=== PATIENT | male | born 1980 | race Caucasian/White ===

== ENCOUNTER 2017-05-21 12:38 | Outpatient (CLI) | payer BC | END 2017-05-21 12:39 | disposition critical access hospital (66) | LOC: EMS 12:38 | PROVIDERS: ATTEND Surgery | DX: M54.5 Low back pain (principal) | CPT/HCPCS: A0425; A0427 ==

== ENCOUNTER 2017-05-21 13:00 | Emergency (ER) | payer BC ==
[2017-05-21] MEDS ORDERED: MORPHINE 10 MG/ML VIAL IVP STA (13:25)
[2017-05-21] MEDS ORDERED: diazePAM INJ 5 MG/ML SYRINGE IVP STA (13:25)
[2017-05-21] MEDS ORDERED: KETOROLAC 60 MG/2 ML VIAL IVP STA (13:25)
--- NOTE | 2017-05-21 13:27 | ED Physician Documentation ---
PD HPI BACK PAIN - Stated complaint Stated Complaint: BACK PX - Chief complaint Chief Complaint: Back Pain - History obtained from History obtained from: Patient, EMS - History of Present Illness Timing - onset: Other (He did a little more lifting yesterday than normal. Today he woke up and has been having intermittent severe back spasms in the low back radiating upward. A little more on the left than the right but certainly bilateral. There is no radiation into the legs, saddle area, or groin. There is no weakness, numbness, or tingling of the legs or saddle area. No incontinence. He has had multiple episodes like this before, however not this severe. He went to a chiropractor 6 months ago which was helpful but had to come here from the chiropractor today because of the severity of the pain.) Review of Systems Ten Systems: 10 systems reviewed and negative Constitutional: reports: Reviewed and negative Cardiac: reports: Reviewed and negative Respiratory: reports: Reviewed and negative PD PAST MEDICAL HISTORY - Past Medical History Past Medical History: No - Past Surgical History Past Surgical History: Yes - Present Medications Home Medications: Ambulatory Orders Medication Instructions Recorded Confirmed Cyclobenzaprine [Flexeril] 10 mg PO TID PRN #20 tablet 05/21/17 Lidocaine Patch 5% [Lidoderm Patch] 1 each TOP DAILY #10 patch 05/21/17 Meloxicam [Mobic] 7.5 mg PO BIDWM PRN #15 tablet 05/21/17 Oxycodone HCl/Acetaminophen 1 - 2 tab PO Q4H PRN #15 tablet 05/21/17 [Percocet 5-325 mg Tablet] predniSONE [Deltasone] 20 mg PO [id number] #21 tab 05/21/17 - Allergies Allergies/Adverse Reactions: Allergies Allergy/AdvReac Type Severity Reaction Status Date / Time No Known Drug Allergies Allergy Verified 05/21/17 13:18 - Social History Does the pt smoke?: No Smoking Status: Never smoker Does the pt drink ETOH?: Yes ETOH Use: Beer Does the pt have substance abuse?: No - Immunizations Immunizations are current?: Yes - POLST Patient has POLST: No PD ED PE NORMAL - Vitals Vital signs reviewed: Yes - General General: Alert and oriented X 3, Other (Intermittently, yelling in pain, laying left lateral decubitus with hips and knees flexed.) - Cardiac Cardiac: RRR, No murmur - Respiratory Respiratory: No respiratory distress, Clear bilaterally - Abdomen Abdomen: Soft, Non tender - Back Back: No spinal TTP, Other (The patient has equal and normal Achilles and patellar reflexes bilaterally. Normal sensation in all areas of the legs. Patient denies saddle anesthesia. Normal strength in flexion-extension at the ankles, knees, and flexion of the hips.) - Neuro Neuro: Alert and oriented X 3, Normal speech Results - Vitals Vitals: Vital Signs - 24 hr 05/21/17 05/21/17 05/21/17 13:18 14:48 17:50 Temperature 36.4 C L 36.6 C 36.4 C L Heart Rate 83 71 70 Respiratory 18 18 18 Rate Blood Pressure 109/76 129/85 H 121/82 H O2 Saturation 97 96 90 L 05/21/17 17:55 Temperature Heart Rate Respiratory Rate Blood Pressure O2 Saturation 97 Oxygen O2 Source Nasal cannula - Rads (name of study) Ct L spine Radiology: EMP read contemporaneously (Mild to moderate disc protrusions at L3- L4 and L4-L5 with degenerative changes.) PD MEDICAL DECISION MAKING - ED course ED course: 37-year-old gentleman presents with recurrent but now severe back spasms. He was initially treated with Toradol, morphine, Valium. On recheck he really had no improvement. He was comfortable at rest but with any motion he was crying in pain. This was followed by 1 and then another dose of Dilaudid. On recheck he was still having a lot of pain with motion. At that point it became clear that he might need to be admitted, a CT was ordered and he was administered Decadron and Tylenol. Somewhere in there he also had oral gabapentin. He had a couple more doses of Dilaudid, also Lidoderm patch. He did want to try to go home but was still having severe spasms with motion. Departure - Departure Disposition: 01 Home, Self Care Clinical Impression: Back pain Qualifiers: Back pain location: low back pain Chronicity: acute Back pain laterality: midline Sciatica presence: without sciatica Qualified Code(s): M54.5 - Low back pain Condition: Good Record reviewed to determine appropriate education?: Yes Instructions: ED Low Back Pain Injury Prescriptions: Cyclobenzaprine [Flexeril] 10 mg PO TID PRN #20 tablet PRN Reason: Pain Lidocaine Patch 5% [Lidoderm Patch] 1 each TOP DAILY #10 patch Meloxicam [Mobic] 7.5 mg PO BIDWM PRN #15 tablet PRN Reason: Pain Oxycodone HCl/Acetaminophen [Percocet 5-325 mg Tablet] 1 - 2 tab PO Q4H PRN #15 tablet PRN Reason: Pain predniSONE [Deltasone] 20 mg PO [id number] #21 tab Comments: Call your doctor to arrange a follow-up appointment, make the next available appointment. In the interim, return anytime if worse or if new symptoms develop. Your blood pressure was elevated today on check into the emergency department. This does not mean that you have hypertension, it is a common phenomenon to come to the emergency department and have elevated blood pressure. I recommend that you see your primary care physician within the week to have it rechecked when you are feeling better. Do not drink or drive while taking narcotic pain medication. Note that many narcotic pain relievers also contain Tylenol/acetaminophen. Please ensure that your total dose of acetaminophen from all sources does not exceed 3 g (3000 mg) per day. You may get constipated while on this medication. Take a stool softener such as Colace twice a day while you are on it. Also add an [id number] laxative such as senna or MiraLAX on any day that you do not have a bowel movement. If you received a narcotic pain medication or sedative while in the emergency department, do not drive for the next 24 hours. Forms: Activity restrictions
[2017-05-21] MEDS ORDERED: KETOROLAC 30 MG/ML VIAL ONE ×2 (13:38→18:21)
[2017-05-21] MEDS ORDERED: diazePAM INJ 5 MG/ML SYRINGE ONE (13:38)
[2017-05-21] MEDS ORDERED: MORPHINE 10 MG/ML VIAL ONE (13:38)
[2017-05-21] MEDS ORDERED: HYDROmorphone 1 MG/ML SYRINGE IVP STA ×3 (14:06→17:14)
[2017-05-21] MEDS ORDERED: HYDROmorphone 1 MG/ML SYRINGE ONE ×3 (14:15→17:44)
[2017-05-21] MEDS ORDERED: GABAPENTIN 100 MG CAPSULE PO STA (14:52)
[2017-05-21] MEDS ORDERED: GABAPENTIN 300 MG CAPSULE ONE (15:00)
[2017-05-21] MEDS ORDERED: ACETAMINOPHEN 1,000 MG/100 ML 100 ML IV STA (15:40)
[2017-05-21] MEDS ORDERED: DEXAMETHASONE 10 MG/ML VIAL IVP STA (15:46)
--- NOTE | 2017-05-21 16:52 | CT Preliminary Report ---
Exam: CT LUMBAR SPINE W/O IMPRESSION: Mild to moderate disk protrusions at L3-L4 and L4-L5 with associated degenerative changes . Further characterization with MR scan may be helpful. [facility] SITE ID: [id number]
--- NOTE | 2017-05-21 16:55 | CT Report ---
EXAM: CT LUMBAR SPINE WITHOUT CONTRAST EXAM DATE: 05/21/2017 04:43 PM. CLINICAL HISTORY: Back pain.. COMPARISONS: None. TECHNIQUE: Thin-section axial images were acquired of the lumbar spine from T12 to S1 without contras t. Post-processing: Coronal and sagittal reformats. Other: None. In accordance with CT protocol optimization, one or more of the following dose reduction techniques w ere utilized for this exam: automated exposure control, adjustment of mA and/or KV based on patient s ize, or use of iterative reconstructive technique. FINDINGS: Alignment: Normal. No scoliosis or spondylolisthesis. Bones: 5 lumbar vertebrae. No fractures or bone lesions. Disk Levels/Facets: T12-L1: Unremarkable. L1-L2: Unremarkable. L2-L3: Unremarkable. L3-L4: Mild central posterior disk protrusion. Minimal disk space narrowing. L4-L5: Moderate left paracentral disk protrusion. Mild disk space narrowing. Mild degenerative facet disease. L5-S1: Mild diffuse disk bulge. Mild degenerative facet disease. Musculature: Grossly unremarkable. Other: The visualized retroperitoneum is unremarkable. IMPRESSION: Mild to moderate disk protrusions at L3-L4 and L4-L5 with associated degenerative changes . Further characterization with MR scan may be helpful. [facility] Referring Provider Line: [phone] SITE ID: [id number]
[2017-05-21] MEDS ORDERED: METHOCARBAMOL 500 MG TABLET PO STA (17:14)
[2017-05-21] MEDS ORDERED: METHOCARBAMOL 500 MG TABLET PO ONE (17:44)
[2017-05-21 17:51] VITALS: BP 121/82
[2017-05-21] MEDS ORDERED: KETOROLAC 30 MG/ML VIAL IVP STA (18:03)
[2017-05-21] MEDS ORDERED: LIDOCAINE PATCH 5% TOP STA (18:03)
[2017-05-21] MEDS ORDERED: LIDOCAINE PATCH 5% TOP ONE (18:21)
== END 2017-05-21 19:30 | disposition home or self-care (01) ==
LOC: EDSEX → ED 13:00
DX: M54.5 Low back pain (principal); G89.29 Other chronic pain; R03.0 Elevated blood-pressure reading, without diagnosis of hypertension
CPT/HCPCS: 72131; 96365; 96375; 96376; 99284; A9270; J1170